=== PATIENT | male | born 1985 | race Caucasian/White ===

== ENCOUNTER → 2018-08-01 | Outpatient (CLI) | payer BC ==
--- NOTE | 2018-08-01 17:33 | CT ---
EXAM DESCRIPTION: Cervical Spine CLINICAL HISTORY: INFLAMMATORY POLYARTHROPATHY COMPARISON: None Available. TECHNIQUE: Cervical CT is performed with thin-section axial imaging. MPRs are created and reviewed as well. FINDINGS: Axial bone window images reveal intact ring of C1. No abnormal widening of the atlantodens interval. No fracture of the vertebral bodies or transverse processes or posterior elements. Lung apices appear clear. No cervical mass or adenopathy. Sagittal reformatted images show reversal of the normal cervical lordosis but otherwise normal alignment of vertebral bodies and facets. No erosions of the facet joints or erosions around the dens. Normal atlantodens interval. Mild degenerative spurring at the tip of the dens. Normal craniocervical alignment. No prevertebral soft tissue swelling. No a avulsion of the spinous processes. Spondylosis: Mild degenerative posterior marginal osteophyte at the upper C4 vertebrae. Mild degenerative narrowing at C5-6 with anterior spurring. No neural foraminal narrowing is evident. Normal appearance of the temporomandibular joints. Coronal reformatted images show normal atlantooccipital and atlantoaxial alignment. The base of the dens is intact as is the body of C2. Intact lateral masses. IMPRESSION: Mild degenerative changes as described. This exam was performed according to our departmental dose-optimization program, which includes automated exposure control, adjustment of the mA and/or kV according to patient size and/or use of iterative reconstruction technique. Total DLP equals 588.41 mGycm. Electronically signed by: Isac Valdez MD 08/01/2018 5:32 PM CDT
--- NOTE | 2018-08-01 17:36 | CT ---
EXAM DESCRIPTION: Lumbar Spine CLINICAL HISTORY: 32 years, Male, INFLAMMATORY POLYARTHROPATHY COMPARISON: None TECHNIQUE: Lumbar CT with thin-section axial imaging with reconstructed MPR images reviewed as well. FINDINGS: Sagittal reformatted images show normal alignment of the lumbar spine. Normal appearance of the upper sacrum. No vertebral compressions or posterior annular bulges. No neural foraminal narrowing or facet degenerative arthrosis. No erosive arthritis of the facets. Few Schmorl's nodes in the lower T-spine and upper L spine are incidentally noted. No prevertebral mass or aneurysm. Axial images show normal posterior disc margins with no spinal stenosis. SI joints are included on the study. The upper sacrum appears intact. Mild spurring at the SI joints suggests mild early degenerative changes. Coronal reformatted images are negative for scoliosis. Intact transverse processes. IMPRESSION: Negative lumbar spine CT. This exam was performed according to our departmental dose-optimization program, which includes automated exposure control, adjustment of the mA and/or kV according to patient size and/or use of iterative reconstruction technique. Electronically signed by: Isac Valdez MD 08/01/2018 5:35 PM CDT
--- NOTE | 2018-08-01 17:39 | CT ---
EXAM DESCRIPTION: Thoracic Spine CLINICAL HISTORY: INFLAMMATORY POLYARTHROPATHY COMPARISON: None Available. TECHNIQUE: Thoracic CT is performed with thin-section axial imaging. MPRs are created and reviewed as well. FINDINGS: There is anatomic alignment of the thoracic spine on sagittal reformatted images. Multiple Schmorl's nodes are seen in the mid and lower T-spine with mild disc space narrowing but no significant posterior annular bulges or spinal canal compromise. Neural foramina appear widely patent. No erosive changes of the facet joints or facet degenerative arthrosis. No vertebral compressions or bony destructive lesions. Coronal reformatted images of the T-spine are negative for scoliotic curvature. The transverse processes and spinous processes appear normal with normal posteromedial ribs. Axial images show no posterior discal abnormalities or spinal stenosis. No abnormality in the upper retroperitoneum or posterior mediastinum. Included portions of the lungs are clear. No vertebral anomaly. IMPRESSION: Small Schmorl's nodes with mild mid and lower thoracic disc space narrowing. Otherwise negative CT examination of the thoracic spine. Electronically signed by: Isac Valdez MD 08/01/2018 5:38 PM CDT
== END ==
LOC: CT 14:39
PROVIDERS: ATTEND Emergency Medicine
DX: M06.4 Inflammatory polyarthropathy (principal); M51.44 Schmorl's nodes, thoracic region

== ENCOUNTER → 2020-10-15 | Outpatient (CLI) | payer BC ==
--- NOTE | 2020-10-16 10:28 | CT ---
EXAM DESCRIPTION: Abdoment/Pelvis w/o Contrast CLINICAL HISTORY: ABDOMINAL PAIN COMPARISON: None Available TECHNIQUE: CT of the abdomen and Pelvis was performed without IV contrast. This exam was performed according to our departmental dose-optimization program, which includes automated exposure control, adjustment of the mA and/or kV according to patient size and/or use of iterative reconstruction technique. FINDINGS: No lung base abnormality. No pneumoperitoneum, adenopathy or ascites. No abdominal aortic aneurysm. No hiatal hernia. No calcified gallstone. The stomach is moderately distended with ingested material, no gastric wall thickening. Bull's eye appearance of the gastroduodenal junction including a thin rim of fat suggests the possibility of intussusception, no apparent mass. The duodenum and more distal small bowel are unremarkable. No mesenteric inflammation. Nonenlarged mesenteric lymph nodes are noted. No left or right-sided urinary tract calculus or hydronephrosis. No bladder wall thickening or bladder calcification. The prostate is not enlarged. Moderate amount of stool and gas in the colon, no colonic wall thickening or pericolonic inflammation. Normal appendix. No acute bone lesion. IMPRESSION: Ingested material and possible intussusception at the gastroduodenal junction resulting in moderate gastric distention without apparent mass or other lead point. Follow-up CT with oral and IV contrast is recommended for further evaluation. Moderate amount of colonic stool and gas, no additional abnormality to explain abdominal pain. Electronically signed by: Manuel Beltre MD 10/16/2020 10:27 AM [employer]
== END ==
LOC: CT 10-14 10:39
PROVIDERS: ATTEND Nurse Practitioner Family
DX: K59.00 Constipation, unspecified (principal); R14.0 Abdominal distension (gaseous)